=== PATIENT | female | born 1970 ===

== ENCOUNTER 2022-05-04 16:44 | Emergency (ER) | payer OTHER ==
[2022-05-04] MEDS ORDERED: Acetaminophen/HYDROcodone 325-5 MG Tab PO PRN (17:17)
[2022-05-04] MEDS ORDERED: Take Home: Acetaminophen/HYDROcodone 325-5 MG, 2 Tab Pack PO ONE (17:28)
== END 2022-05-04 17:40 | disposition home or self-care (01) ==
LOC: CC.ED 16:44
DX: S82.831A Other fracture of upper and lower end of right fibula, initial encounter for closed fracture (principal); S93.401A Sprain of unspecified ligament of right ankle, initial encounter; S80.212A Abrasion, left knee, initial encounter; I10 Essential (primary) hypertension; E66.9 Obesity, unspecified; Z68.33 Body mass index [BMI] 33.0-33.9, adult; W18.39XA Other fall on same level, initial encounter
CPT/HCPCS: 73610-RT; 99283-25; 99284; A9270-GY